=== PATIENT | male | born 1955 | race Two or more races ===

== ENCOUNTER 2023-04-12 18:27 | Emergency (ER) | payer MEDICARE, OTHER, SELFPAY ==
--- NOTE | ~2023-04-12 | XR_ITS ---
EXAMINATION: XR CHEST CLINICAL INFORMATION: Cough. COMPARISON: None available. TECHNIQUE: Frontal view of the chest was obtained. FINDINGS: Normal appearance of the cardiomediastinal silhouette. No focal airspace opacity, pleural effusion or pneumothorax. No displaced osseous fractures. Visualized upper abdomen is within normal limits. XR/XR chest 1V IMPRESSION: No acute cardiopulmonary findings.
[2023-04-12 19:03] VITALS: BP 155/98; PULSE 65; RESP 18; TEMP 36.8; O2SAT 98; BMI 31.0
--- NOTE | 2023-04-12 19:03 | ED.GENADULT ---
HPI - General Adult General Chief complaint: General Medical Stated complaint: high BP Time Seen by Provider: 04/12/23 22:06 Source: patient Mode of arrival: ambulatory Limitations: no limitations History of Present Illness HPI narrative: Pain history of hypertension diabetes end-stage renal disease on peritoneal dialysis at home usual blood pressure well controlled on nifedipine and amlodipine today noticed his blood pressure elevated when arrived blood sugar increased to 155/98 at the time of examination increased to 236/100. No chest pain or palpitation or syncope no headache patient does have cough for last 1 week other family member works in [employer] kids with the [employer] for positive for COVID with no family member positive for COVID Related Data Allergies Allergy/AdvReac Type Severity Reaction Status Date / Time No Known Allergies Allergy Verified 04/12/23 19:09 Review of Systems Review of Systems: Yes all other systems are reviewed and are negative [facility] Social History Social History Smoked in Last 30 Days: No Use of substances other than those prescribed or required for medical reasons: No Advance Directives: No Advance Directives Information Provided: No Physical Exam ED Vital Signs: Vital Signs - 24 hr 04/12/23 19:03 04/12/23 22:13 04/12/23 22:17 Temperature 98.3 F 97.9 F Pulse Rate 65 73 Respiratory Rate 18 13 Blood Pressure 155/98 H 236/100 H 239/111 H Pulse Oximetry 98 98 Oxygen Delivery Method Room Air Room Air 04/13/23 00:30 Temperature 97.9 F Pulse Rate 67 Respiratory Rate 14 Blood Pressure 204/67 H Pulse Oximetry 99 Oxygen Delivery Method Room Air BMI result Body Mass Index 31.0 Appearance: Alert. Oriented X3. No acute distress. Eyes: Pallor+ ENT: Pharynx normal. Oral Mucosa moist Neck: Normal inspection. Neck supple. CVS: Normal heart rate and rhythm. Pulses normal. Respiratory: No respiratory distress. Equal air entry bilateral, no wheezing/rales/rhonchi Abdomen: Soft and nontender. Bowel sounds are present, no mass palpable, no CVA tenderness Skin: Skin warm and dry. Normal skin color. Normal skin turgor. Extremities: + lower extremity edema. No calf tenderness Neuro: Oriented X 3. No motor deficit. No sensory deficit.No cerebellar signs , cranial nerves II-XII intact Course Course Course Narrative: This is a rapid medical exam: Additional HPI, ROS, PE not included below will be deferred to primary provider. Patient is a 68-year-old male presenting to the emergency department with high blood pressure readings at home, states amlodipine was added yesterday and readings have still been high, reports SBP >200. Reports nosebleeds for 4 days. Reports slight headache, blurred vision. Reports shortness of breath, denies chest pain. BP in triage 155/98. Plan: EKG, labs Medications Administered Discontinued Medications Generic Name Dose Route Start Last Admin Trade Name Freq PRN Reason Stop Dose Admin Furosemide 100 mg 04/12/23 22:56 04/12/23 23:21 Furosemide 100 Mg/10 Ml Vial IVPUSH 04/12/23 22:57 100 mg ONCE ONE Administration Protocol Labetalol HCl 20 mg 04/12/23 22:56 04/12/23 23:18 Labetalol Hcl 100 Mg/20 Ml Vial IVPUSH 04/12/23 22:57 20 mg ONCE ONE Administration Medical Decision Making Medical Decision Making [facility] Narrative: Patient blood pressure improved after IV labetalol and IV Lasix was given patient advised to follow-up with PCP Lab Data [facility] Lab Attestation statement: I reviewed the patient's lab results. 04/12/23 20:53 04/12/23 20:53 Labs: Lab Results 04/12/23 04/12/23 04/12/23 Range/Units 20:53 20:53 20:53 WBC 13.7 H (4.8-10.8) X10*3/uL RBC 4.35 L (4.60-5.80) X10*6/uL Hgb 12.6 L (14.0-18.0) g/dl Hct 40.3 L (42.0-52.0) % MCV 92.6 (80.0-98.0) fL MCH 29.0 (27.0-33.0) pg MCHC 31.3 (31.0-36.0) g/dl RDW 13.6 (11.0-16.0) % Plt Count 305 (160-400) X10*3/uL MPV 11.9 (9.4-12.4) fL Immature Gran % (Auto) 0.7 H (0.0-0.4) % Neut % (Auto) 78.0 H (45-73) % Lymph % (Auto) 10.6 L (20-40) % [place] % (Auto) 8.6 (2-11) % Eos % (Auto) 1.5 (0-4) % Baso % (Auto) 0.6 (0-2) % Lymph # (Auto) 1.5 (1.2-4.9) X10*3/uL [place] # (Auto) 1.2 (0.1-1.2) X10*3/uL Eos # (Auto) 0.2 (0.0-0.4) X10*3/uL Baso # (Auto) 0.1 (0.0-0.2) X10*3/uL Abs Immat Gran (auto) 0.09 H (0.00-0.03) X10*3/uL Absolute Neuts (auto) 10.7 H (2.0-8.3) x10*3/uL Absolute Nucleated RBC 0.000 (0.0-0.012) X10*3/uL Nucleated RBC % (auto) 0.0 (0.0-0.2) /100WBC Sodium 144 (135-145) mmol/L Potassium 3.5 (3.3-5.1) mmol/L Chloride 105 (96-108) mmol/L Carbon Dioxide 23 (22-29) mmol/L Anion Gap 20 (12-20) BUN 46 H (9-16) mg/dL Creatinine 10.32 H* (0.5-1.4) mg/dL Estim Creat Clear Calc 7.6 Estimated GFR 5 Random Glucose 131 H (60-115) mg/dL Calcium 8.5 (8.4-10.2) mg/dL Total Bilirubin 0.6 (0.0-1.0) mg/dL AST 21 (5-37) U/L ALT 19 (0-40) U/L Alkaline Phosphatase 78 (39-117) U/L Troponin I High Sens 74.3 H (<3.5-35.0) ng/L Total Protein 7.2 (6.5-8.0) g/dL Albumin 3.6 (3.5-5.0) g/dL COVID-19 ([facility]) (Negative) COVID-19 Clin Com 04/13/23 Range/Units 00:34 WBC (4.8-10.8) X10*3/uL RBC (4.60-5.80) X10*6/uL Hgb (14.0-18.0) g/dl Hct (42.0-52.0) % MCV (80.0-98.0) fL MCH (27.0-33.0) pg MCHC (31.0-36.0) g/dl RDW (11.0-16.0) % Plt Count (160-400) X10*3/uL MPV (9.4-12.4) fL Immature Gran % (Auto) (0.0-0.4) % Neut % (Auto) (45-73) % Lymph % (Auto) (20-40) % [place] % (Auto) (2-11) % Eos % (Auto) (0-4) % Baso % (Auto) (0-2) % Lymph # (Auto) (1.2-4.9) X10*3/uL [place] # (Auto) (0.1-1.2) X10*3/uL Eos # (Auto) (0.0-0.4) X10*3/uL Baso # (Auto) (0.0-0.2) X10*3/uL Abs Immat Gran (auto) (0.00-0.03) X10*3/uL Absolute Neuts (auto) (2.0-8.3) x10*3/uL Absolute Nucleated RBC (0.0-0.012) X10*3/uL Nucleated RBC % (auto) (0.0-0.2) /100WBC Sodium (135-145) mmol/L Potassium (3.3-5.1) mmol/L Chloride (96-108) mmol/L Carbon Dioxide (22-29) mmol/L Anion Gap (12-20) BUN (9-16) mg/dL Creatinine (0.5-1.4) mg/dL Estim Creat Clear Calc Estimated GFR Random Glucose (60-115) mg/dL Calcium (8.4-10.2) mg/dL Total Bilirubin (0.0-1.0) mg/dL AST (5-37) U/L ALT (0-40) U/L Alkaline Phosphatase (39-117) U/L Troponin I High Sens (<3.5-35.0) ng/L Total Protein (6.5-8.0) g/dL Albumin (3.5-5.0) g/dL COVID-19 ([facility]) Negative (Negative) COVID-19 Clin Com See Note Independent Interpretation I performed an independent interpretation of an: EKG Interpretation: Interval sinus rhythm heart rate 66 beats per minute LVH no acute ST-T changes no acute ischemia Discharge Plan Discharge Clinical Impression: Hypertension Patient Disposition: Home, Self-Care Instructions: Chronic Hypertension (ED) Additional Instructions: Continue taking medication for blood pressure If blood pressure higher than 160/100 may take Extra nifedipine 60 mg Follow with Nephrology Interventions: ED Discharge Assessment Last Done: 04/13/23 01:29 Discharge Date/Time: 04/13/23 01:29
--- NOTE | 2023-04-12 19:09 | ECG_ITS ---
Test Reason : DIZZINESS Blood Pressure : / mmHG Vent. Rate : 066 BPM Atrial Rate : 066 BPM P-R Int : 204 ms QRS Dur : 150 ms QT Int : 454 ms P-R-T Axes : 006 -54 092 degrees QTc Int : 475 ms Normal sinus rhythm Left axis deviation Left ventricular hypertrophy with QRS widening and repolarization abnormality ( R in aVL , Asad product , Romhilt-Stringer ) Abnormal ECG No previous ECGs available Referred By: Radha Roberts Electronically Signed By:ARMIN MATOS
[2023-04-12 21:05] LABS: MANUAL DIFF FLAG NO
[2023-04-12 21:10] LABS: Basophils Absolute Auto 0.1 X10*3/uL (0.0-0.2); Basophils Percent Auto 0.6 % (0-2); Eosinophils Absolute Auto 0.2 X10*3/uL (0.0-0.4); Eosinophils Percent Auto 1.5 % (0-4); Hematocrit 40.3 % (42.0-52.0); Hemoglobin 12.6 g/dl (14.0-18.0); Imm Gran Abs Auto 0.09 X10*3/uL (0.00-0.03); Imm Gran Pct Auto 0.7 % (0.0-0.4); Lymphocytes Absolute Auto 1.5 X10*3/uL (1.2-4.9); Lymphocytes Percent Auto 10.6 % (20-40); Mean Corpuscular HGB Conc 31.3 g/dl (31.0-36.0); Mean Corpuscular Volume 92.6 fL (80.0-98.0); Mean Platelet Volume 11.9 fL (9.4-12.4); Monocytes Absolute Auto 1.2 X10*3/uL (0.1-1.2); Monocytes Percent Auto 8.6 % (2-11); Neutrophils Absolute Auto 10.7 x10*3/uL (2.0-8.3); Platelet Count 305 X10*3/uL (160-400); Red Blood Count 4.35 X10*6/uL (4.60-5.80); Red Cell Distribution Width 13.6 % (11.0-16.0); White Blood Count 13.7 X10*3/uL (4.8-10.8)
[2023-04-12 21:46] LABS: Troponin-I High Sensitivity 74.3 ng/L (<3.5-35.0)
[2023-04-12 21:50] LABS: Alanine Aminotransferase 19 U/L (0-40); Albumin Level 3.6 g/dL (3.5-5.0); Alkaline Phosphatase 78 U/L (39-117); Anion Gap 20 (12-20); Bilirubin Total 0.6 mg/dL (0.0-1.0); Blood Urea Nitrogen 46 mg/dL (9-16); Calcium 8.5 mg/dL (8.4-10.2); Carbon Dioxide 23 mmol/L (22-29); Chloride 105 mmol/L (96-108); Creatinine Clr Calc Pharmacy 7.6; Estimated Glomerular Filt Rate 5; Glucose Random 131 mg/dL (60-115); Potassium 3.5 mmol/L (3.3-5.1); Sodium 144 mmol/L (135-145); Total Protein 7.2 g/dL (6.5-8.0)
[2023-04-12 22:08] LABS: Aspartate Amino Transferase 21 U/L (5-37)
[2023-04-12 22:13] VITALS: BP 236/100; PULSE 73; RESP 13; TEMP 36.6; O2SAT 98
[2023-04-12 22:17] VITALS: BP 239/111
[2023-04-12] MEDS: Labetalol HCL 100 MG/20 ML VIAL 20 MG IVPUSH (23:18)
[2023-04-12] MEDS: Furosemide 100 MG/10 ML VIAL IVPUSH (23:21)
[2023-04-13 00:30] VITALS: BP 204/67; PULSE 67; RESP 14; TEMP 36.6; O2SAT 99
[2023-04-13 00:59] LABS: COVID-19 Test Negative (Negative); IDNOW Serial# 6674DD1D
== END 2023-04-13 01:29 | disposition home or self-care (01) ==
PROVIDERS: Registered Nurse Emergency; Emergency Provider Internal Medicine
DX: I10 Essential (primary) hypertension (principal); Z20.822 Contact with and (suspected) exposure to COVID-19
CPT/HCPCS: 36415; 71045; 80053; 84484; 85025; 87635; 93005; 96374; 96375; 99284; 99285; J1940

== ENCOUNTER → 2023-04-12 19:09 | Outpatient (BNV) | payer MEDICARE, MEDICAID, SELFPAY | PROVIDERS: Emergency Provider Internal Medicine; Visit Provider Internal Medicine | DX: R94.31 Abnormal electrocardiogram [ECG] [EKG] (principal) | CPT/HCPCS: 93010 ==